=== PATIENT | female | born 1945 | race Two or more races ===

== ENCOUNTER 2023-04-10 20:39 | Inpatient (IN) | payer OTHER ==
[~2023-04-10] VITALS: Ht 149.9 cm; Wt 44.5 kg
[2023-04-10] MEDS ORDERED: FENOFIBRATE54 MG PO (21:09)
[2023-04-10] MEDS ORDERED: SIMVASTATIN40 MG PO (21:09)
[2023-04-10] MEDS ORDERED: GABAPENTIN400 MG PO (21:09)
[2023-04-10] MEDS ORDERED: ENALAPRIL MALEA10 MG PO (21:09)
[2023-04-10] MEDS ORDERED: RISEDRONATE SO150 MG PO (21:09)
== END 2023-04-15 13:47 | disposition home or self-care (01) | DRG 342 ==
LOC: ER 20:39 → MEDI 22:54
PROVIDERS: Nurse Practitioner Family; Surgery; ADMIT Internal Medicine; ATTEND Internal Medicine
PROC: 0WQF4ZZ Repair Abdominal Wall, Percutaneous Endoscopic Approach (ICD-10-PCS; 2023-04-11)
PROC: 0DTJ4ZZ Resection of Appendix, Percutaneous Endoscopic Approach (ICD-10-PCS; principal; 2023-04-11 16:15)
PROC: 30233N1 Transfusion of Nonautologous Red Blood Cells into Peripheral Vein, Percutaneous Approach (ICD-10-PCS; 2023-04-14)
DX: K35.890 Other acute appendicitis without perforation or gangrene (principal); D62 Acute posthemorrhagic anemia; K43.9 Ventral hernia without obstruction or gangrene; Z20.822 Contact with and (suspected) exposure to COVID-19

== ENCOUNTER 2023-07-12 22:07 | Inpatient (IN) | payer OTHER ==
[~2023-07-12] VITALS: Ht 58.4 cm; Wt 39.0 kg
[~2023-07-12 22:07] MED LIST: ENALAPRIL MALEA10 MG PO; FENOFIBRATE54 MG PO; GABAPENTIN400 MG PO; RISEDRONATE SO150 MG PO; SIMVASTATIN40 MG PO
[2023-07-13 05:33] LABS: HEMATOCRIT 32.2 % (36.0-45.00); MEAN CELL VOLUME 87.8 fL (80.00-100.00); MEAN CORPUSCULAR HEMOGLOBIN 29.9 pg (27.00-32.0); PLATELET COUNT 241 K/uL (150-450); RED BLOOD COUNT 3.67 M/uL (4.00-6.00)
[2023-07-13 05:42] LABS: ERYTHROCYTE SEDIMENTATION RATE 16 mm/hr
[2023-07-13 05:43] LABS: INR 0.99; PARTIAL THROMBOPLASTIN TIME 27.1 SECONDS (22.0-34.0); PROTHROMBIN TIME 10.4 SECONDS (9.0-11.5)
[2023-07-13 05:45] LABS: BILIRUBIN TOTAL 0.3 mg/dL (0.3-1.2); C-REACTIVE PROTEIN 3.18 MG/DL (0.00-0.29); CALCIUM 9.2 mg/dL (8.5-10.1); CHOL HDL RATIO 2.7 (0-5.0); CREATININE SERUM 0.47 mg/dL (0.55-1.02); GFR 128.16; GLOBULINA 3.5 G/DL (2.4-3.5); POTASSIUM 3.75 mEq/L (3.5-5.1); TOTAL PROTEIN 6.5 gm/dL (6.4-8.2)
[2023-07-13 08:25] LABS: PH,URINE 6.5 (5.0-8.0); URINE APPEARANCE Clear; URINE BILIRRUBIN Negative (NEGATIVE); URINE BLOOD Negative; URINE COLOR Yellow; URINE GLUCOSE Negative (NEGATIVE); URINE LEUKOCYTE Negative; URINE NITRATE Negative; URINE PROTEIN Negative (NEGATIVE)
[2023-07-13 08:26] LABS: URINE EPITHELIAL CELLS 2.7 uL (0.0-38.8); URINE RBC 9.7 uL (0.0-20.8)
[2023-07-16 06:22] LABS: HEMATOCRIT 32.3 % (36.0-45.00); MEAN CORPUSCULAR HEMOGLOBIN 29.3 pg (27.00-32.0); MEAN CORPUSCULAR HGB CONC 34.1 g/dl (32.0-36.0); PLATELET COUNT 271 K/uL (150-450); RED BLOOD COUNT 3.75 M/uL (4.00-6.00); RED CELL DISTRIBUTION WIDTH 14.2 % (11.5-14.5)
[2023-07-16 06:56] LABS: ALBUMIN 3.3 gm/dL (3.4-5.0); BILIRUBIN TOTAL 0.34 mg/dL (0.3-1.2); CALCIUM 8.7 mg/dL (8.5-10.1); CREATININE SERUM 0.58 mg/dL (0.55-1.02); GFR 100.54; MAGNESIUM 1.8 mg/dL (1.8-2.4); PHOSPHOROUS 2.8 mg/dL (2.5-4.9); POTASSIUM 3.16 mEq/L (3.5-5.1); TOTAL PROTEIN 6.3 gm/dL (6.4-8.2)
[2023-07-16 07:01] LABS: C-REACTIVE PROTEIN 1.01 MG/DL (0.00-0.29)
== END 2023-07-17 19:44 | disposition home or self-care (01) | DRG 395 ==
LOC: ER 22:07 → SURH 07-13 01:33 → SEC-K 07-13 01:33 → SURH 07-13 10:07 → MEDJ 07-15 11:15
PROVIDERS: General Practice; Internal Medicine Infectious Disease; ADMIT Internal Medicine; ATTEND Internal Medicine
DX: K36 Other appendicitis (principal); I10 Essential (primary) hypertension; E78.49 Other hyperlipidemia